=== PATIENT | female | born 1980 ===

== ENCOUNTER 2021-08-28 00:22 | Emergency (ER) | payer SELFPAY | END 2021-08-28 02:48 | disposition home or self-care (01) | LOC: ERS 00:22 | DX: R53.83 Other fatigue (principal); F17.210 Nicotine dependence, cigarettes, uncomplicated | CPT/HCPCS: 36416; 99281 ==

== ENCOUNTER 2021-10-27 20:10 | Emergency (ER) | payer OTHER | END 2021-10-27 21:15 | disposition left against medical advice (07) | LOC: ERS 20:10 | DX: Z53.21 Procedure and treatment not carried out due to patient leaving prior to being seen by health care provider (principal) ==

== ENCOUNTER 2023-04-05 00:41 | Emergency (ER) | payer OTHER, SELFPAY ==
[2023-04-05] MEDS ORDERED: Lidocaine 1% w/Epinephrine 1:100K 20 ML VIAL ONE (03:52)
[2023-04-06] MEDS ORDERED: Metoclopramide HCl 10 MG/2 ML VIAL ONE ×2 (03:46)
== END 2023-04-05 04:18 ==
LOC: ERS 00:41
DX: S01.01XA Laceration without foreign body of scalp, initial encounter (principal); F17.210 Nicotine dependence, cigarettes, uncomplicated; Y04.8XXA Assault by other bodily force, initial encounter
CPT/HCPCS: 12002; 70450